=== PATIENT | male | born 1965 | race Caucasian/White ===

== ENCOUNTER 2017-11-27 06:21 | Day surgery (SDC) | payer OTHER ==
[2017-11-21 15:39] VITALS: BMI 28.2
[2017-11-27] MEDS ORDERED: MIDAZOLAM HCL 2 MG/2 ML SINGLE DOSE VIAL ONE (08:02)
[2017-11-27] MEDS ORDERED: PROPOFOL 20 ML ONE (08:02)
[2017-11-27] MEDS ORDERED: DEXAMETHASONE SOD PHOSPHATE 4 MG/1 ML VIAL ONE (08:03)
[2017-11-27] MEDS ORDERED: ONDANSETRON 4 MG/2 ML VIAL ONE (08:03)
[2017-11-27] MEDS ORDERED: BUPIVACAINE HCL 0.25% 125 MG/50 ML VIAL ONE (08:15)
[2017-11-27] MEDS ORDERED: BUPIVACAINE HCL/PF 0.25% (2.5MG/ML) 10 ML VIAL IJ ONE (08:54)
[2017-11-27 10:37] VITALS: TEMP 97.5
[2017-11-27 10:39] VITALS: PULSE 61
[2017-11-27 10:41] VITALS: BP 122/80
--- NOTE | 2017-11-27 12:47 | OP ---
DATE OF OPERATION: 11/27/2017 SURGEON: Cristian Benavides MD PREOPERATIVE DIAGNOSIS: Right carpal tunnel syndrome. POSTOPERATIVE DIAGNOSIS: Right carpal tunnel syndrome. OPERATIVE PROCEDURE: Right endoscopic carpal tunnel release. ANESTHESIA: General. COMPLICATIONS: None. ESTIMATED BLOOD LOSS: Minimal. INDICATIONS FOR PROCEDURE: The patient is a 52-year-old male with the above findings, indicated for operative treatment. The risks, benefits, and alternatives were discussed with the patient at length. Proper informed consent was obtained. PROCEDURE: After proper identification of the patient and the correct operative site, the patient was brought to the operating room and placed supine on the operating table with prominences well padded. General anesthesia was provided by the anesthesiologist adequate for the procedure. Right upper extremity was prepped and draped in the usual sterile fashion. Well-padded tourniquet was placed with a sterile prep. Esmarch bandage used to exsanguinate the right upper extremity. Tourniquet inflated to 250 mmHg. Transverse incision made over the proximal wrist crease. Incision was taken sharply through the skin with blunt and sharp dissection through subcutaneous tissues. The antebrachial fascia was divided, and the carpal canal was entered. Hamate finder dilators were used to prepare the canal, and the Micro[employer]ire Endoscopic Carpal Tunnel Release System was used and inserted through the distal aspect of the transverse carpal ligament. At all times throughout the procedure, excellent visualization was achieved, and at no time was any soft tissue allowed to interpose between the apparatus and the undersurface of the transverse carpal ligament. The blade was then deployed and the transverse carpal ligament was divided. Using a mini-open approach, the distal 4 cm of antebrachial fascia were also divided. This provided complete release of the median nerve at the wrist. Wound was irrigated with saline and repaired with 4-0 Monocryl suture. Sterile dressings were applied. The patient was reversed from anesthesia and brought to the recovery room in stable condition. He tolerated the procedure well. CRISTIAN BENAVIDES M.D. [id number]
== END 2017-11-27 10:20 | disposition home or self-care (01) ==
LOC: FASU 06:21
PROVIDERS: ATTEND Orthopaedic Surgery Hand Surgery
PROC: 01N54ZZ Release Median Nerve, Percutaneous Endoscopic Approach (ICD-10-PCS; principal; 2017-11-27 08:34)
DX: G56.01 Carpal tunnel syndrome, right upper limb (principal)
CPT/HCPCS: 94760